=== PATIENT | female | born 1950 | race Caucasian/White ===

== ENCOUNTER 2016-12-07 12:30 | Inpatient (IN) | payer MEDICARE, OTHER ==
--- NOTE | 2016-12-08 14:45 | HISTORY & PHYSICAL ---
CHIEF COMPLAINT: Hospice. HISTORY OF PRESENT ILLNESS: This is a 66-year-old female with bipolar disorder, who was diagnosed with metastatic colon cancer 06/2016. Apparently she had a history of intermittent abdominal cramps and epigastric abdominal discomfort since 2015, for which she was eventually hospitalized 06/14/16. At that time, she had been diagnosed with H. pylori and had symptoms consistent with acute gastroenteritis. Treatment was initiated, but she returned to the Emergency Room several weeks later. At that point, abdominal CT scan revealed presence of a mass in the cecal region. Further workup by Gastroenterology and other specialists led to the diagnosis of metastatic cancer. I am unsure where the metastasis has gone to at this point. Patient is only on a liquid pureed diet at this time. She attributes this more to her dry mouth syndrome than to the colon cancer. In the last week, she has been experiencing 18 minute episodes of left lower quadrant abdominal spasms with episodes on Wednesday, Wednesday, and this most recent Wednesday. Etiology is not clear. In addition, last week Wednesday she began to experience left leg weakness and paralysis to the point that she is unable to bear weight. In addition, she has left arm weakness as well. She is able to grasp things but has difficulty moving her arm away from her body due to left shoulder weakness. She denies any double vision, blurred vision, loss of vision, hearing problems, speech problems, swallowing problems, headache or other focal neurological problems. The left sided weakness has led to a fall with no serious injury. Patient does have bipolar disorder, and is not always clear to what portion of her story is correct or not. There is a certain degree of embellishment or changing of the facts. Overall did not find this problematic, and I was able to get most of the history from the patient otherwise. Patient has a strong Mandaeism outlook and sense of forgiveness about her events. She wishes that her children were more actively involved in her care. There is some concern by nursing staff that there may be an element of dony in patient's thinking. ALLERGIES: Codeine (intolerant), Percocet (intolerant), [place] (diabetes insipidus). MEDICATIONS Olanzapine 2.5 mg p.o. q.h.s. Docusate/sennoside 1 tab p.o. b.i.d. PRN constipation. Zinc 1 tab p.o. daily. Lysine 1 tab p.o. daily. B12 1 tab p.o. daily. Selenium 1 tab p.o. daily. Multivitamin 1 tab p.o. daily. MiraLax 17 grams p.o. daily PRN constipation. Lorazepam 0.5 mg 1-2 tabs p.o./sublingual q.4 hours PRN anxiety/agitation. Dilaudid 4 mg per mL 1-2 mL p.o. /sublingual q.3 hours PRN pain. Guaifenesin 100 mg per 5 mL 10 mL q.4 hours PRN bronchospasm. Levsin 0.125 mg sublingual q.4 hours PRN secretions. Milk of Magnesium PRN. Bisacodyl suppositories daily PRN. Prochlorperazine 10 mg p.o. q.6 hours PRN. Tylenol liquid 325-650 mg p.o. q.4-6 hours PRN. PAST MEDICAL HISTORY 1. Metastatic colon cancer, diagnosed 06/2016. 2. Bipolar I. 3. Anxiety. 4. History of H. pylori gastritic 06/2016. 5. Ovarian cancer stage 1A, status post Total abdominal hysterectomy with bilateral salpingo-oophorectomy, appendectomy and lymph node resection 2006 and currently is considered cleared. 6. Tonsillectomy and adenoidectomy. 7. Sacral cyst surgery. 8. Dilation and curettage. 9. Conization. SOCIAL HISTORY: Single, 3 children. [employer]. Quit smoking 1980. Drinks alcohol socially. FAMILY HISTORY: Father with alcoholism, gout and in his 60s of a suicide. Brother with alcoholism. Sister with alcoholism. REVIEW OF SYSTEMS: No heart, lung, kidney, liver, diabetes, seizures, peptic ulcer disease, hypertension, hyperlipidemia, skin, allergy or bleeding disorders. No urinary problems. PREVENTATIVE HEALTH: Patient historically declines flu shots, Pneumovax and Prevnar. PHYSICAL EXAMINATION GENERAL: In no apparent distress, alert and oriented x3. Patient is extremely verbal outlining these stories with going off on tangents frequently and difficulty keeping focused. There are flight of ideas and somewhat hypomanic in her thinking. She feels that she is communing with God and that many of her events are predetermined by God. HEENT: EOMI. No icterus. Normal conjunctivae. No coryza. Pharynx not injected. Dry mouth. NECK: No lymphadenopathy. No thyromegaly. Neck supple. CHEST: Clear. No rales, rhonchi or wheezes. Good breath sounds and symmetry throughout. COR: RRR without murmurs, gallops, rubs or clicks. No jugular venous distention. No ectopy. ABDOMEN: Soft. Mild right lower quadrant abdominal tenderness. No hepatosplenomegaly. No palpable mass in the right lower quadrant. Bowel sounds present. LOWER EXTREMITIES: No edema. Normal capillary refill. NEUROLOGIC: Cranial nerves 2-12 intact. Motor 0/5 in the left leg (I can passively move the left leg without pain or discomfort). Left arm sleep lab technician strength , flexion and extension 5/5. However, patient has virtually no movement in the left shoulder girdle region. No muscle atrophy noted. Sensory still appears to be intact. Right arm and leg with good motor strength. ASSESSMENT 1. Metastatic colon cancer. Patient is having some right lower quadrant abdominal discomfort intermittent with colonic spasm over the last week, although these symptoms are mostly localized to the left lower quadrant. In addition, she appears to have developed left leg paralysis and partial paralysis of the left shoulder region in the last week. Whether this could be due to metastasis of the brain, psychiatric or otherwise is not fully clear. 2. Bipolar disorder. Currently somewhat hypomanic. 3. Dry mouth. PLAN 1. Will resume usual home medications for now, but may need to consider increasing the dose of Olanzapine to control bipolar symptoms. Have Lorazepam available for anxiety and agitation as well. 2. Dilaudid PRN pain control. 3. Docusate/Sennoside to prevent constipation. 4. Patient is aware that we will not pursue workup for left sided weakness at this time. It would be unlikely that this is a treatable condition. 5. Nystatin swish and swallow at patient request for dry mouth. MTDD
[2016-12-10 17:46] LABS: NIL (NEG) CONTROL SPOT COUNT 1; PANEL A SPOT COUNT 0; TSPOT TEST NEGATIVE
[2016-12-10 17:47] LABS: PANEL B SPOT COUNT 0
--- NOTE | 2016-12-21 09:14 | DEATH SUMMARY ---
DIAGNOSES 1.Colon cancer. 2.Bipolar disorder. HISTORY OF PRESENT ILLNESS: This is a 66-year-old female with bipolar disorder , was diagnosed with metastatic colon cancer 06/2016. See history and physical for further details. In the week prior to admission she had been experiencing 18 minute episodes of left lower quadrant abdominal spasms/pain on multiple days. Etiology was not clear. In addition, the Wednesday prior to admission, she began to experience left leg weakness and paralysis to the point she was unable to bear weight. In addition, she had left arm weakness as well; she was able to grasp things but had difficulty moving her arm away from her body due to left shoulder weakness. The left-sided weakness resulted in a fall with no serious injuries. The patient did have bipolar disorder and it was not always clear to what portion her story was correct or not. There was a certain degree of embellishment or change in the facts. There was concern from nursing staff at the time that there was a degree of dony in the patients thinking. Please see previously dictated history and physical for further details. PPLC COURSE: The patient was admitted on hospice with metastatic colon cancer. Appropriate hospice care was provided with pain medications, Levsin for chronic spasm, nystatin for mouth symptoms, lorazepam, etc. Bowel function was maintained with stool softeners, etc. On 12/17/16 at [address] . [facility] [place]
== END 2016-12-17 01:40 | disposition expired | DRG 375 ==
LOC: EEVIPCON 12:30 → PPLC 12:30
PROVIDERS: ADMIT Family Medicine; ATTEND Family Medicine
DX: C78.5 Secondary malignant neoplasm of large intestine and rectum (principal); Z51.5 Encounter for palliative care; C56.2 Malignant neoplasm of left ovary; C56.1 Malignant neoplasm of right ovary; F31.9 Bipolar disorder, unspecified; F41.9 Anxiety disorder, unspecified; Z79.899 Other long term (current) drug therapy
CPT/HCPCS: 36415; 86481

== ENCOUNTER 2016-12-12 | Inpatient (IN) | payer SELFPAY | END 2016-12-17 01:40 | disposition EXP | DRG 375 | LOC: PPLC | PROVIDERS: ADMIT Family Medicine; ATTEND Family Medicine | DX: C78.5 Secondary malignant neoplasm of large intestine and rectum (principal); Z51.5 Encounter for palliative care; C56.2 Malignant neoplasm of left ovary; C56.1 Malignant neoplasm of right ovary; F31.9 Bipolar disorder, unspecified; F41.9 Anxiety disorder, unspecified; Z79.899 Other long term (current) drug therapy ==